=== PATIENT | female | born 1970 | race Two or more races ===

== ENCOUNTER 2018-12-27 19:38 | Emergency (ER) | payer MEDICAID ==
[~2018-12-27] VITALS: Ht 157.5 cm; Wt 64.4 kg
[~2018-12-27 19:38] MED LIST: HYDR-4833 PO
[2018-12-27 19:48] VITALS: BP 122/74
== END 2018-12-27 21:13 | disposition left against medical advice (07) ==
LOC: ER 19:40
DX: H92.01 Otalgia, right ear (principal); Z53.21 Procedure and treatment not carried out due to patient leaving prior to being seen by health care provider

== ENCOUNTER 2018-12-29 11:02 | Emergency (ER) | payer MEDICAID ==
[~2018-12-29] VITALS: Ht 154.9 cm; Wt 63.5 kg
[2018-12-29 11:40] VITALS: BP 116/68
== END 2018-12-29 11:55 | disposition home or self-care (01) ==
LOC: ER 11:12
DX: H66.92 Otitis media, unspecified, left ear (principal); Z90.49 Acquired absence of other specified parts of digestive tract; Z79.899 Other long term (current) drug therapy

== ENCOUNTER 2019-01-23 19:34 | Emergency (ER) | payer MEDICAID ==
[~2019-01-23] VITALS: Ht 162.6 cm; Wt 63.5 kg
[2019-01-23 19:40] VITALS: BP 146/92
[2019-01-23] MEDS ORDERED: ACETAMINOPHEN 325 MG TAB PO ONE (20:00)
[2019-01-23 20:13] LABS: Basophils # (auto) 0.1 uL; Basophils % (auto) 0.9 % (0.0-2.0); Eosinophils # (auto) 0.2 uL; Eosinophils % (auto) 2.1 % (0.0-7.0); Hematocrit 44.6 % (36.0-46.0); Hemoglobin 15.1 g/dL (12.2-16.2); Lymphocytes # (auto) 2.5 uL; Lymphocytes % (auto) 34.1 % (10.0-50.0); Mean Corpuscular Hemoglobin 29.5 pg (28.0-32.0); Mean Corpuscular Hgb Conc. 33.8 g/dL (32.0-36.0); Mean Corpuscular Volume 87.2 fL (80.0-100.0); Monocytes # (auto) 0.4 uL; Monocytes % (auto) 5.4 % (0.0-12.0); Neutrophils # (auto) 4.2 uL; Neutrophils % (auto) 57.5 % (37.0-80.0); Nucleated Red Blood Cells % 0.1 %; Platelet Count (auto) 291 10^3/uL (140-450); Red Blood Cells 5.11 10^6/uL (4.0-5.20); Red Cell Distribution Width 13.3 % (11.8-14.3); White Blood Cell 7.2 10^3/uL (4.4-10.8)
[2019-01-23 20:29] LABS: Alanine Aminotransferase 15 U/L (13-56); Albumin 3.8 g/dL (3.4-5.0); Anion Gap 7 (5-15); Aspartate Aminotransferase 6 U/L (15-37); BUN/Creatinine Ratio 16.3; Blood Urea Nitrogen 15 mg/dL (7-18); Calcium 8.8 mg/dL (8.5-10.1); Carbon Dioxide 25 mmol/L (21-32); Chloride 108 mmol/L (98-107); GFR African American 83 mL/min; GFR Non-African American 69 mL/min; Glucose 108 mg/dL (74-106); Potassium 3.8 mmol/L (3.5-5.1); Sodium 140 mmol/L (136-145)
[2019-01-23 20:30] LABS: INR 0.94 (0.9-1.15)
[2019-01-23 20:34] LABS: Alkaline Phosphatase 118 U/L (45-117); Bilirubin, Total 0.2 mg/dL (0.2-1.0); Total Protein 7.3 g/dL (6.4-8.2)
[2019-01-24] MEDS ORDERED: LORazepam 0.5 MG TAB PO ONE (00:15)
[2019-01-24] MEDS ORDERED: DexAMETHasone SOD PHOS 10MG/1ML VIAL INJ IM ONE (00:15)
== END 2019-01-24 00:40 | disposition home or self-care (01) ==
LOC: ER 19:34
DX: F41.0 Panic disorder [episodic paroxysmal anxiety] (principal); H65.90 Unspecified nonsuppurative otitis media, unspecified ear; Z79.899 Other long term (current) drug therapy
CPT/HCPCS: 36415; 70450; 80053; 84484; 84702; 85025; 85379; 85610; 85730; 93005; 94761; 96372; 99284; J1100

== ENCOUNTER 2022-03-29 12:30 | Inpatient (IN) | payer MEDICAID ==
[~2022-03-29] VITALS: Ht 165.1 cm; Wt 66.0 kg
[2022-03-29 14:22] LABS: Basophils # (auto) 0.1 10 ^3/uL (0-0.2); Basophils % (auto) 0.9 % (0.0-2.0); Eosinophils # (auto) 0.1 10 ^3/uL (0-0.8); Eosinophils % (auto) 2.1 % (0.0-7.0); Hematocrit 46.1 % (36.0-46.0); Hemoglobin 15.8 g/dL (12.2-16.2); Lymphocytes # (auto) 1.8 10 ^3/uL (0.4-5.4); Lymphocytes % (auto) 28.3 % (10.0-50.0); Mean Corpuscular Hgb Conc. 34.2 g/dL (32.0-36.0); Mean Corpuscular Volume 84.8 fL (80.0-100.0); Monocytes # (auto) 0.3 10 ^3/uL (0-1.3); Monocytes % (auto) 5.3 % (0.0-12.0); Neutrophils # (auto) 4.1 10 ^3/uL (1.6-8.6); Neutrophils % (auto) 63.4 % (37.0-80.0); Nucleated Red Blood Cells % 0.1 %; Red Blood Cells 5.44 10^6/uL (4.0-5.20); Red Cell Distribution Width 12.5 % (11.8-14.3); White Blood Cell 6.4 10^3/uL (4.4-10.8)
[2022-03-29 14:40] LABS: INR 0.98 (0.9-1.15); Partial Thromboplastin Time 29.1 sec (24.6-33.4)
[2022-03-29 15:02] LABS: Albumin 3.9 g/dL (3.4-5.0); BUN/Creatinine Ratio 25.9; Calcium 9.6 mg/dL (8.5-10.1); Magnesium 2.3 mg/dL (1.6-2.6); Potassium 4.9 mmol/L (3.5-5.1)
[2022-03-29 15:05] LABS: Bilirubin, Total 0.4 mg/dL (0.2-1.0); Total Protein 7.2 g/dL (6.4-8.2)
[2022-03-29 16:30] LABS: Urine Bacteria NONE SEEN /hpf (None Seen); Urine Blood 1+ /uL (Negative); Urine Mucus FEW (None Seen); Urine WBC 1 /hpf (0 - 5)
[2022-03-29] MEDS ORDERED: IOHEXOL 350 MG/ML 100ML IJ ONE (20:59)
[2022-03-29] MEDS ORDERED: MORPHINE SULFATE INJ 2 MG/ml SYRG IV ONE (21:15)
[2022-03-29] MEDS ORDERED: ASPirin 325 MG TAB PO ONE (22:45)
[2022-03-30] MEDS ORDERED: NITROGLYCERIN 0.4 MG SL TAB SL PRN (01:30)
[2022-03-30] MEDS ORDERED: MORPHINE SULFATE INJ 2 MG/ml SYRG IV PRN (01:30)
[2022-03-30 04:44] LABS: Basophils # (auto) 0.1 10 ^3/uL (0-0.2); Basophils % (auto) 0.9 % (0.0-2.0); Eosinophils # (auto) 0.2 10 ^3/uL (0-0.8); Eosinophils % (auto) 1.9 % (0.0-7.0); Hematocrit 45.2 % (36.0-46.0); Hemoglobin 15.6 g/dL (12.2-16.2); Lymphocytes # (auto) 2.2 10 ^3/uL (0.4-5.4); Lymphocytes % (auto) 27.7 % (10.0-50.0); Mean Corpuscular Hemoglobin 29.2 pg (28.0-32.0); Mean Corpuscular Hgb Conc. 34.6 g/dL (32.0-36.0); Mean Corpuscular Volume 84.4 fL (80.0-100.0); Monocytes # (auto) 0.5 10 ^3/uL (0-1.3); Monocytes % (auto) 6.1 % (0.0-12.0); Neutrophils % (auto) 63.4 % (37.0-80.0); Red Blood Cells 5.35 10^6/uL (4.0-5.20); Red Cell Distribution Width 12.4 % (11.8-14.3); White Blood Cell 7.9 10^3/uL (4.4-10.8)
[2022-03-30 05:08] LABS: Albumin 3.6 g/dL (3.4-5.0); Calcium 8.8 mg/dL (8.5-10.1); Potassium 3.8 mmol/L (3.5-5.1)
[2022-03-30 05:10] LABS: BUN/Creatinine Ratio 20.5
[2022-03-30 05:12] LABS: Bilirubin, Total 0.6 mg/dL (0.2-1.0); Total Protein 6.7 g/dL (6.4-8.2)
[2022-03-30] MEDS: ONDANSETRON HCL 4 MG/2 ML VIAL IV PRN ×2 (07:42→18:01)
[2022-03-30] MEDS: MORPHINE SULFATE INJ 2 MG/ml SYRG IV PRN ×2 (07:42→18:01)
[2022-03-30 09:52] LABS: Cholesterol 145 mg/dL (< 200)
[2022-03-30 09:55] LABS: HDL Cholesterol 62 mg/dL (40-59); LDL Cholesterol 76 mg/dL (< 100); Triglycerides 97 mg/dL (< 150)
[2022-03-31] MEDS ORDERED: ATOR20TA PO (03:39)
[2022-03-31] MEDS ORDERED: ASPI-543 PO (03:40)
[2022-03-31 05:00] VITALS: BP 107/67
[2022-03-31 05:21] LABS: Basophils # (auto) 0 10 ^3/uL (0-0.2); Basophils % (auto) 0.7 % (0.0-2.0); Eosinophils # (auto) 0.2 10 ^3/uL (0-0.8); Eosinophils % (auto) 2.9 % (0.0-7.0); Hematocrit 45.7 % (36.0-46.0); Hemoglobin 15.9 g/dL (12.2-16.2); Lymphocytes # (auto) 1.8 10 ^3/uL (0.4-5.4); Mean Corpuscular Hemoglobin 29.3 pg (28.0-32.0); Mean Corpuscular Hgb Conc. 34.8 g/dL (32.0-36.0); Mean Corpuscular Volume 84.2 fL (80.0-100.0); Monocytes # (auto) 0.4 10 ^3/uL (0-1.3); Neutrophils # (auto) 4.2 10 ^3/uL (1.6-8.6); Neutrophils % (auto) 63.4 % (37.0-80.0); Nucleated Red Blood Cells % 0.1 %; Red Blood Cells 5.43 10^6/uL (4.0-5.20); Red Cell Distribution Width 12.4 % (11.8-14.3); White Blood Cell 6.6 10^3/uL (4.4-10.8)
[2022-03-31 05:35] LABS: Albumin 3.5 g/dL (3.4-5.0); Potassium 4.2 mmol/L (3.5-5.1)
[2022-03-31 05:39] LABS: Bilirubin, Total 0.6 mg/dL (0.2-1.0)
[2022-03-31] MEDS: MORPHINE SULFATE INJ 2 MG/ml SYRG IV PRN ×4 (06:23→23:39)
[2022-03-31 09:00] VITALS: BP 106/69
[2022-03-31 13:00] VITALS: BP 104/68
[2022-03-31 15:35] LABS: Protein, CSF 43.8 mg/dL (15-45)
[2022-03-31 16:43] LABS: CSF White Blood Cells 0 CUMM (0-5)
[2022-03-31 16:44] VITALS: BP 130/83
[2022-03-31] MEDS: ATORVASTATIN 20 MG TAB PO SCH (21:05)
[2022-03-31 22:00] VITALS: BP 111/64
[2022-04-01 05:07] LABS: Basophils # (auto) 0 10 ^3/uL (0-0.2); Basophils % (auto) 0.7 % (0.0-2.0); Eosinophils # (auto) 0.2 10 ^3/uL (0-0.8); Eosinophils % (auto) 2.6 % (0.0-7.0); Hematocrit 43.7 % (36.0-46.0); Lymphocytes # (auto) 2.1 10 ^3/uL (0.4-5.4); Lymphocytes % (auto) 29.8 % (10.0-50.0); Mean Corpuscular Hemoglobin 29.1 pg (28.0-32.0); Mean Corpuscular Hgb Conc. 34.3 g/dL (32.0-36.0); Mean Corpuscular Volume 84.8 fL (80.0-100.0); Monocytes # (auto) 0.4 10 ^3/uL (0-1.3); Monocytes % (auto) 6.3 % (0.0-12.0); Neutrophils # (auto) 4.3 10 ^3/uL (1.6-8.6); Neutrophils % (auto) 60.6 % (37.0-80.0); Red Blood Cells 5.15 10^6/uL (4.0-5.20); Red Cell Distribution Width 12.5 % (11.8-14.3)
[2022-04-01 05:20] VITALS: BP 131/72
[2022-04-01 05:26] LABS: Calcium 8.8 mg/dL (8.5-10.1); Potassium 4.7 mmol/L (3.5-5.1)
[2022-04-01 05:29] LABS: Albumin 3.4 g/dL (3.4-5.0); BUN/Creatinine Ratio 24.7
[2022-04-01] MEDS: MORPHINE SULFATE INJ 2 MG/ml SYRG IV PRN ×3 (05:30→13:41)
[2022-04-01 05:32] LABS: Bilirubin, Total 0.5 mg/dL (0.2-1.0); Total Protein 6.4 g/dL (6.4-8.2)
[2022-04-01 09:00] VITALS: BP 108/66
[2022-04-01] MEDS: ONDANSETRON HCL 4 MG/2 ML VIAL IV PRN ×2 (09:18→17:08)
[2022-04-01] MEDS: ASPirin 81 mg TAB PO SCH (09:22)
[2022-04-01 13:50] VITALS: BP 109/68
[2022-04-01 16:53] VITALS: BP 120/87
[2022-04-01] MEDS: HYDROcodone-ACET 10/325MG TAB PO PRN (17:30)
[2022-04-01 22:20] VITALS: BP 127/86
[2022-04-01] MEDS: ATORVASTATIN 20 MG TAB PO SCH (22:24)
[2022-04-02 05:00] VITALS: BP 118/72
[2022-04-02 06:04] LABS: Basophils # (auto) 0 10 ^3/uL (0-0.2); Basophils % (auto) 0.7 % (0.0-2.0); Eosinophils # (auto) 0.2 10 ^3/uL (0-0.8); Hematocrit 46.1 % (36.0-46.0); Hemoglobin 15.8 g/dL (12.2-16.2); Lymphocytes # (auto) 1.8 10 ^3/uL (0.4-5.4); Lymphocytes % (auto) 29.6 % (10.0-50.0); Mean Corpuscular Hemoglobin 29.3 pg (28.0-32.0); Mean Corpuscular Hgb Conc. 34.2 g/dL (32.0-36.0); Mean Corpuscular Volume 85.5 fL (80.0-100.0); Monocytes # (auto) 0.3 10 ^3/uL (0-1.3); Monocytes % (auto) 5.4 % (0.0-12.0); Neutrophils # (auto) 3.7 10 ^3/uL (1.6-8.6); Neutrophils % (auto) 61.3 % (37.0-80.0); Nucleated Red Blood Cells % 0.1 %; Red Blood Cells 5.39 10^6/uL (4.0-5.20); Red Cell Distribution Width 12.4 % (11.8-14.3); White Blood Cell 6.1 10^3/uL (4.4-10.8)
[2022-04-02 06:15] LABS: Albumin 3.6 g/dL (3.4-5.0); Potassium 4.7 mmol/L (3.5-5.1)
[2022-04-02 06:17] LABS: Bilirubin, Total 0.6 mg/dL (0.2-1.0); Total Protein 7.1 g/dL (6.4-8.2)
[2022-04-02] MEDS: HYDROcodone-ACET 10/325MG TAB PO PRN ×3 (08:06→17:30)
[2022-04-02 09:00] VITALS: BP 125/71
[2022-04-02] MEDS: ASPirin 81 mg TAB PO SCH (09:30)
[2022-04-02 12:00] VITALS: BP 125/71
[2022-04-02] MEDS: ONDANSETRON HCL 4 MG/2 ML VIAL IV PRN (12:43)
[2022-04-02 13:00] VITALS: BP 117/71
[2022-04-02 17:00] VITALS: BP 119/83
[2022-04-02] MEDS ORDERED: HYDROcodone-ACET 10/325MG TAB PO PRN (18:15)
[2022-04-03] MEDS ORDERED: PANTOPRAZOLE 40 MG TAB PO SCH (10:00)
== END 2022-04-02 19:15 | disposition home or self-care (01) | DRG 82 ==
LOC: ER 12:30 → TELE 03-30 01:34 → TELE-WESTW 03-30 21:03
PROVIDERS: ADMIT Orthopaedic Surgery; ATTEND Nurse Practitioner
PROC: 009U3ZX Drainage of Spinal Canal, Percutaneous Approach, Diagnostic (ICD-10-PCS; principal; 2022-03-31)
DX: H02.401 Unspecified ptosis of right eyelid (principal); I67.1 Cerebral aneurysm, nonruptured; F17.200 Nicotine dependence, unspecified, uncomplicated; Z20.822 Contact with and (suspected) exposure to COVID-19; G43.909 Migraine, unspecified, not intractable, without status migrainosus; R29.810 Facial weakness; H53.2 Diplopia; Z86.73 Personal history of transient ischemic attack (TIA), and cerebral infarction without residual deficits; Z90.49 Acquired absence of other specified parts of digestive tract
CPT/HCPCS: 36415; 70450; 70496; 70551; 71046; 80053; 80061; 81001; 82945; 83735; 84157; 84484; 85025; 85610; 85730; 87426; 89051; 93005; 93306; 93886; 96374; 96375; 96376; G0378; J2405

== ENCOUNTER 2024-05-26 06:24 | Emergency (ER) | payer MEDICAID ==
[~2024-05-26] VITALS: Ht 157.5 cm; Wt 64.9 kg
[~2024-05-26 06:24] MED LIST changes: +ASPI-543 PO; +ATOR20TA PO; -HYDR-4833 PO
[2024-05-26 07:31] VITALS: BP 110/78; PULSE 79; RESP 18; TEMP 98.1; O2SAT 98
--- NOTE | 2024-05-26 08:18 | ED.PDOC ---
History of Present Illness HPI Comments Presents for URI symptoms Non productive cough and chest congestion Started 2 days ago Took DayQuil and IBU Has no medical hx Denies fevers chills night sweats unintentional weight loss Denies persistent chest pain, shortness of breath, leg swelling Denies history of asthma nor any breathing conditions Denies history of pneumonia Denies recent international travel Chief Complaint: Flu like Time Seen by MD: 06:49 Reviewed Notes: Nurses Notes, Medications, Allergies Past Medical History PAST MEDICAL HISTORY: TIA Surgical History: Cholecystectomy, [employer] History: No Pertinent [employer] History Family History Family History: Family hx of heart gloria Social History Smoker: Non-Smoker Alcohol: Denies ETOH Use Drugs: Denies Drug Use Lives In: Home All Other Systems: Reviewed and Negative (Per HPI) Physical Exam General Appearance: No Apparent Distress, Normal HEENT: Normal ENT Inspection, Pharynx Normal, TMs Normal Neck: Full Range of Motion, Non-Tender, Normal, Normal Inspection Respiratory: Chest Non-Tender, Lungs Clear, No Accessory Muscle Use, No R espiratory Distress, Normal Breath Sounds Cardiovascular: No Edema, No JVD, No Murmur, No Gallop, Normal Peripheral Pulses, Regular Rate/Rhythm Breast Exam: Deferred Gastrointestinal: No Organomegaly, Non Tender, No Pulsatile Mass, Normal Bowel Sounds, Soft Genitalia: Deferred Pelvic: Deferred Rectal: Deferred Extremities: No calf tenderness, Normal capillary refill, Normal inspection, Normal range of motion, Non-tender, No pedal edema Musculoskeletal : Apperance: Normal Neurologic: Alert, physician asst II-XII nml as Tested, No Motor Deficits, Normal Affect, Normal Mood, No Sensory Deficits Cerebellar Function: Normal Reflexes: Normal Skin: Dry, Normal Color, Warm Lymphatic: No Adenopathy Was a procedure done? Was a procedure done?: No Fever Differential Dx Differential Diagnosis: Viral Syndrome X-Ray, Labs, Meds, VS Vital Signs Date Time Temp Pulse Resp B/P (MAP) Pulse Ox O2 Delivery O2 Flow Rate FiO2 05/26/24 07:31 79 18 98 Room Air 05/26/24 07:31 98.1 79 18 110/78 (89) 98 98.1 05/26/24 06:34 98.1 79 18 110/78 (89) 98 X-Ray, Labs, Meds, VS Comment This is a pleasant 54-year-old female who is nontoxic non ill-appearing who presents with a chief complaint of URI symptoms. After ROS physical examination there were no red flags. Based on show decision-making patient agreed to empiric treatment. Advised to take medications as directed and complete the entire course of antibiotics if the symptoms resolve. Discussed that cough can linger up to 6 weeks after viral URI ED precautions if cough does not alleviate or if cough worsens Supportive care and return precautions discussed Counseled viral infection and explained that antibiotics would not be helpful in resolving the illness sooner. Recommended vitamin C, rest, handwashing, and symptomatic care. Expect 2-week course with possibly of cough lingering up to 6 weeks. Nonpharmacological remedies for fluids has been recommended as well All diagnostic findings, discharge care, education and instructions provided Follow-up with PCP in 2 to 3 days Patient verbalized understanding and agreed to treatment plan Vital signs stable, afebrile, no acute distress noted Patient ambulatory with strong steady gait Advised to return precautions for any new or worsening symptoms, return to ER immediately for re-evaluation Patient is aware that the purpose of this visit was for an acute medical emergency requiring emergent stabilization. Chronic conditions, including malignancies have not been ruled out. Patient is instructed to follow up with PCP as directed and discharge instructions for continued care and workup. If unable to arrange follow-up, patient is to return to the emergency department for reassessment. Patient (parent or legal guardian if applicable) was given verbal and written discharge instructions and acknowledges understanding. Time of 1ST Reevaluation: 08:45 Reevaluation 1ST: Improved Patient Education/Counseling: Diagnosis, Treatment Family Education/Counseling: Diagnosis, Treatment Departure 1 Departure Time of Disposition: 08:58 Impression: Primary Impression: Viral syndrome Disposition: 01 HOME / SELF CARE / HOMELESS Condition: Fair e-Prescriptions Acetaminophen (Acetaminophen) 500 Mg Tab 500 MG PO Q6HP PRN for 10 Days, #40 TAB 0 Refills Prov: KIMANI PICKENS JAW SKINNER 05/26/24 Ibuprofen (Ibuprofen) 600 Mg Tab 1 TAB PO TID for 10 Days, #30 TAB 0 Refills Prov: KIMANI PICKENS JAW SKINNER 05/26/24 Promethazine-Dm (Promethazine Dm 6.25-15 mg/5Ml) 1 Stefani Stefani 5 ML PO TID for 10 Days, #150 ML 0 Refills Prov: KIMANI PICKENS JAW SKINNER 05/26/24 Amoxicillin & Pot Clavulanate (AUGMENTIN TABLET) 875 Mg Tb 875 MG PO BID for 7 Days, #14 TAB 0 Refills Prov: KIMANI PICKENS NP 05/26/24 Critical Care Note Critical Care Time?: No Stability Stability form required: No Heart Score Heart Score: Heart Score Response (Comments) Value History N/A 0 EKG N/A 0 Age N/A 0 Risk Factors N/A 0 Troponin N/A 0 Total 0 KIMANI PICKENS NP May 26, 2024 08:18
[2024-05-26] MEDS ORDERED: ACET500T58 PO (09:01)
[2024-05-26] MEDS ORDERED: AUG875T PO (09:01)
[2024-05-26] MEDS ORDERED: IBUP-1454 PO (09:01)
[2024-05-26] MEDS ORDERED: PROM1SOL4 PO (09:01)
== END 2024-05-26 09:01 | disposition home or self-care (01) ==
LOC: ER 06:24
DX: B34.9 Viral infection, unspecified (principal); Z86.73 Personal history of transient ischemic attack (TIA), and cerebral infarction without residual deficits; Z90.49 Acquired absence of other specified parts of digestive tract